=== PATIENT | male | born 1985 | race African-American/Black ===

== ENCOUNTER 2019-02-26 11:18 | Emergency (ER) | payer SELFPAY ==
[~2019-02-26] VITALS: Ht 185.4 cm; Wt 80.0 kg
[2019-02-26] MEDS ORDERED: LORAZEPAM 2MG/ML CPJ IV ONE (12:45)
[2019-02-26 14:45] VITALS: BP 122/88
== END 2019-02-26 16:15 | disposition home or self-care (01) ==
LOC: ER 12:03
DX: F16.10 Hallucinogen abuse, uncomplicated (principal); R45.1 Restlessness and agitation; F17.200 Nicotine dependence, unspecified, uncomplicated
CPT/HCPCS: 96374; 99284; J2060; Z7610